=== PATIENT | male | born 1950 | race Caucasian/White ===

== ENCOUNTER 2021-01-19 10:14 | Emergency (ER) | payer MEDICARE, MEDICAID ==
[~2021-01-19] VITALS: Ht 175.3 cm; Wt 76.8 kg
[~2021-01-19 10:14] MED LIST: ASPI-611 PO; BENA20TA2 PO; HYDR25TA4 PO; LOVA20TA2 PO
[2021-01-19 10:16] VITALS: BP 147/87
[2021-01-19] MEDS ORDERED: HYDR-3965 PO (10:58)
== END 2021-01-19 11:28 | disposition home or self-care (01) ==
LOC: ER 10:14
DX: S20.211A Contusion of right front wall of thorax, initial encounter (principal); R10.11 Right upper quadrant pain; Z88.5 Allergy status to narcotic agent; Z79.899 Other long term (current) drug therapy; W19.XXXA Unspecified fall, initial encounter; Y93.89 Activity, other specified; Y92.89 Other specified places as the place of occurrence of the external cause; Y99.8 Other external cause status
CPT/HCPCS: 71045; 99284

== ENCOUNTER 2021-06-09 21:13 | Emergency (ER) | payer MEDICARE, MEDICAID ==
[~2021-06-09] VITALS: Ht 172.7 cm; Wt 65.5 kg
[2021-06-09 21:49] VITALS: BP 125/89
[2021-06-09] MEDS ORDERED: LIDOcaine 1% W/epiNEPHrine 1:200,000 10ml vial IJ ONE (23:50)
[2021-06-09] MEDS ORDERED: TETanus/Pertussis (Acell)/Diphther VAC/PF (Tdap-Adult) 0.5ml syringe IMVAC ONE (23:50)
[2021-06-09] MEDS ORDERED: CEPH250T PO (23:53)
== END 2021-06-10 01:47 | disposition home or self-care (01) ==
LOC: ER 21:14
DX: S61.412A Laceration without foreign body of left hand, initial encounter (principal); Z88.5 Allergy status to narcotic agent; Z79.2 Long term (current) use of antibiotics; Z79.899 Other long term (current) drug therapy; Z20.3 Contact with and (suspected) exposure to rabies; X58.XXXA Exposure to other specified factors, initial encounter; Y93.89 Activity, other specified; Y92.89 Other specified places as the place of occurrence of the external cause; Y99.8 Other external cause status
CPT/HCPCS: 12002; 90471; 90715; 99283

== ENCOUNTER 2021-06-16 10:30 | Emergency (ER) | payer MEDICARE, MEDICAID ==
[~2021-06-16] VITALS: Ht 175.3 cm; Wt 72.7 kg
[~2021-06-16 10:30] MED LIST changes: +CEPH250T PO
[2021-06-16 10:39] VITALS: BP 164/85
== END 2021-06-16 13:05 | disposition home or self-care (01) ==
LOC: ER 10:31
DX: S61.412D Laceration without foreign body of left hand, subsequent encounter (principal); Z88.8 Allergy status to other drugs, medicaments and biological substances; Z79.2 Long term (current) use of antibiotics; Z79.899 Other long term (current) drug therapy; Z79.82 Long term (current) use of aspirin; X58.XXXD Exposure to other specified factors, subsequent encounter
CPT/HCPCS: 99281

== ENCOUNTER 2021-06-19 10:56 | Emergency (ER) | payer MEDICARE, MEDICAID ==
[~2021-06-19] VITALS: Ht 175.3 cm; Wt 75.9 kg
== END 2021-06-19 15:30 | disposition home or self-care (01) ==
LOC: ER 10:57
DX: S60.455 Superficial foreign body of left ring finger (principal); Z48.00 Encounter for change or removal of nonsurgical wound dressing; Z88.8 Allergy status to other drugs, medicaments and biological substances; Z79.899 Other long term (current) drug therapy; X58.XXXD Exposure to other specified factors, subsequent encounter
CPT/HCPCS: 99281

== ENCOUNTER 2021-06-23 09:43 | Emergency (ER) | payer MEDICARE, MEDICAID ==
[~2021-06-23] VITALS: Ht 175.3 cm; Wt 75.9 kg
[~2021-06-23 09:43] MED LIST changes: -CEPH250T PO
[2021-06-23 09:46] VITALS: BP 164/93
== END 2021-06-23 10:23 | disposition home or self-care (01) ==
LOC: ER 09:44
DX: S61.411D Laceration without foreign body of right hand, subsequent encounter (principal); Z88.8 Allergy status to other drugs, medicaments and biological substances; Z79.899 Other long term (current) drug therapy; Z48.02 Encounter for removal of sutures; X58.XXXD Exposure to other specified factors, subsequent encounter
CPT/HCPCS: 99281